=== PATIENT | male | born 1950 | race Caucasian/White ===

== ENCOUNTER 2017-03-04 15:44 | Emergency (ER) | payer MEDICAID, MEDICARE ==
--- NOTE | 2017-03-04 16:14 | ER Document Report ---
ED Medical Screen (RME) - General Chief Complaint: Psych Problem Stated Complaint: SUICIDAL IDEATION Time Seen by Provider: 03/04/17 16:10 Notes: Patient arrives by ambulance. Patient states he was picked up in a field [place] to his [place]. Patient states he is not sure who called the ambulance. He states that he has been feeling very depressed and has been thinking of killing himself. He states he does have a gun at his trailer. Patient denies any problems with hallucinations. Patient states he has never seen a psychiatrist before. Patient states he does live alone. Patient denies any thoughts of wanting to hurt anyone else. Patient states he has never tried to commit suicide before. He says he is depressed because his mother and 2 brothers recently . - Related Data Allergies/Adverse Reactions: Sulfa (Sulfonamide Antibiotics) Allergy (Verified 03/04/17 15:59) Past Medical History Renal/ Medical History: Denies: Hx Peritoneal Dialysis
[2017-03-04 16:49] LABS: ABSOLUTE BASOPHILS # (AUTO) 0.1 10^3/uL (0.0-0.2); ABSOLUTE EOSINOPHILS # (AUTO) 0.4 10^3/uL (0.0-0.6); ABSOLUTE MONOCYTES (AUTO) 0.6 10^3/uL (0.1-1.4); ABSOLUTE NEUT (AUTO) 6.8 10^3/uL (1.7-8.2); BASOPHILS % (AUTO) 1.2 % (0-2); EOSINOPHILS % (AUTO) 3.8 % (0-6); HEMATOCRIT 42.1 % (37.9-51.0); HEMOGLOBIN 14.1 g/dL (13.5-17.0); HGB HCT DIFFERENCE 0.2; LYMPHOCYTES % (AUTO) 20.4 % (13-45); MEAN CORPUSCULAR HEMOGLOBIN 30.7 pg (27.0-33.4); MEAN CORPUSCULAR HGB CONC 33.5 g/dL (32.0-36.0); MEAN CORPUSCULAR VOLUME 92 fl (80-97); MONOCYTES % (AUTO) 5.9 % (3-13); RED CELL DISTRIBUTION WIDTH 15.7 % (11.5-14.0); SEGMENTED NEUTROPHILS % (AUTO) 68.7 % (42-78); WHITE BLOOD COUNT 9.9 10^3/uL (4.0-10.5)
[2017-03-04 17:01] LABS: APPEARANCE,URINE CLEAR; BILIRUBIN,URINE NEGATIVE (NEGATIVE); GLUCOSE, URINE NEGATIVE (NEGATIVE); KETONES,URINE NEGATIVE (NEGATIVE); LEUKOCYTE ESTERASE,URINE NEGATIVE (NEGATIVE); NITRITE,URINE NEGATIVE (NEGATIVE); PROTEIN,URINE NEGATIVE (NEGATIVE); URINE SPECIFIC GRAVITY 1.012; UROBILINOGEN,URINE NEGATIVE mg/dL (<2.0)
[2017-03-04 17:06] LABS: ALANINE AMINOTRANSFERASE 26 U/L (21-72); ALBUMIN 4.2 g/dL (3.5-5.0); ALCOHOL < 10 mg/dL (NONE DETECTED); ALKALINE PHOSPHATASE 96 U/L (38-126); ANION GAP 10 (5-19); ASPARTATE AMINO TRANSFERASE 26 U/L (17-59); BILIRUBIN,DIRECT 0.4 mg/dL (0.0-0.4); BILIRUBIN,TOTAL 0.6 mg/dL (0.2-1.3); BLOOD UREA NITROGEN 15 mg/dL (7-20); CALCIUM 9.1 mg/dL (8.4-10.2); CARBON DIOXIDE 28 mmol/L (22-30); CHLORIDE 98 mmol/L (98-107); CREATININE RESULT 0.82 mg/dL (0.52-1.25); GLUCOSE 94 mg/dL (75-110); POTASSIUM 4.1 mmol/L (3.6-5.0); SODIUM 136.1 mmol/L (137-145); TOTAL PROTEIN 6.8 g/dL (6.3-8.2)
[2017-03-04 17:19] LABS: URINE BARBITURATES SCREEN NEGATIVE; URINE METHADONE SCREEN NEGATIVE; URINE OPIATES LOW NEGATIVE; URINE PHENCYCLIDINE SCREEN NEGATIVE
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
[2017-03-04] MEDS ORDERED: DIPHENHYDRAMINE HCL 50 MG CAPSULE PO ONE (21:22)
[2017-03-04] MEDS: BUSPIRONE HCL 10 MG TABLET PO SCH (21:27)
[2017-03-04] MEDS ORDERED: IBUPROFEN 600 MG TABLET PO ONE (22:03)
--- NOTE | 2017-03-04 23:19 | EKG REPORT ---
SEVERITY:- NORMAL ECG - SINUS RHYTHM : Confirmed by: Denisa Sage 04-Mar-2017 23:18:24
--- NOTE | 2017-03-05 00:41 | ER Document Report ---
ED Psych Disorder / Suicide - General Chief Complaint: Psych Problem Stated Complaint: SUICIDAL IDEATION Time Seen by Provider: 03/04/17 16:10 Mode of Arrival: Ambulatory Information source: Patient - HPI Patient complains to provider of: Suicidal ideation Onset was: Cannot confirm Quality of pain: No pain Suicide Risk Factors: Depressed, Lack of social support, Male Associated symptoms: Depressed, Flat affect Notes: Patient is a 66-year-old male presenting to the emergency room today complaining of depression, stating "I have a bad case of the blues", with thoughts of suicide, he denies any history of this previously, however brother confirm that he has a history of mental illness previous hospitalizations, he is not currently on any medications, he does report that he has lack of social support, and is depressed over the of many family members specifically his mother who in 2015 - Related Data Allergies/Adverse Reactions: Sulfa (Sulfonamide Antibiotics) Allergy (Verified 03/04/17 15:59) Past Medical History - General Information source: Patient - Social History Smoking Status: Current Every Day Smoker Frequency of alcohol use: Social Drug Abuse: None Family History: Reviewed & Not Pertinent Patient has suicidal ideation: Yes Renal/ Medical History: Denies: Hx Peritoneal Dialysis Review of Systems - Review of Systems Constitutional: No symptoms reported EENT: No symptoms reported Cardiovascular: No symptoms reported Respiratory: No symptoms reported Gastrointestinal: No symptoms reported Genitourinary: No symptoms reported Male Genitourinary: No symptoms reported Musculoskeletal: No symptoms reported Skin: No symptoms reported Hematologic/Lymphatic: No symptoms reported Neurological/Psychological: See HPI -: Yes All other systems reviewed and negative Physical Exam - Vital signs Vitals: Temp Pulse Resp BP Pulse Ox 98.6 F 62 16 140/67 H 99 03/04/17 16:00 03/04/17 16:00 03/04/17 16:00 03/04/17 16:00 03/04/17 16:00 Interpretation: Normal - General General appearance: Appears well, Alert - HEENT Head: Normocephalic, Atraumatic Eyes: Normal Pupils: PERRL - Respiratory Respiratory status: No respiratory distress Chest status: Nontender Breath sounds: Normal Chest palpation: Normal - Cardiovascular Rhythm: Regular Heart sounds: Normal auscultation Murmur: No - Abdominal Inspection: Normal Distension: No distension Bowel sounds: Normal Tenderness: Nontender Organomegaly: No organomegaly - Back Back: Normal, Nontender - Extremities General upper extremity: Normal inspection, Nontender, Normal color, Normal ROM , Normal temperature General lower extremity: Normal inspection, Nontender, Normal color, Normal ROM , Normal temperature, Normal weight bearing. No: Robin's sign - Neurological Neuro grossly intact: Yes Cognition: Normal Orientation: AAOx4 Luis Coma Scale Eye Opening: Spontaneous Luis Coma Scale Verbal: Oriented [place] Coma Scale Motor: Obeys Commands Luis Coma Scale Total: 15 Speech: Normal Motor strength normal: LUE, RUE, LLE, RLE Sensory: Normal - Psychological Associated symptoms: Depressed, Flat affect - Skin Skin Temperature: Warm Skin Moisture: Dry Skin Color: Normal Course - Re-evaluation Re-evalutation: 03/05/17 00:40 Patient was seen and evaluated by mental health who recommends to place him on IVC for further evaluation and treatment, medication recommendations were made and ordered, patient is otherwise stable for transfer discharge - Vital Signs Vital signs: Temp Pulse Resp BP Pulse Ox 98.5 F 65 16 138/69 H 99 03/04/17 19:14 03/04/17 19:14 03/04/17 19:14 03/04/17 19:14 03/04/17 19:14 - Laboratory Result Diagrams: 03/04/17 16:35 03/04/17 16:35 Laboratory results interpreted by me: 03/04/17 03/04/17 03/04/17 16:35 16:35 16:35 RDW 15.7 H Sodium 136.1 L Urine Blood SMALL H Salicylates < 1.0 L Acetaminophen < 10 L - EKG Interpretation by Me EKG shows normal: Sinus rhythm Rate: Bradycardia Discharge - Discharge Clinical Impression: Suicidal ideations Condition: Stable Disposition: PSYCH HOSP/UNIT
[2017-03-05] MEDS: DIVALPROEX SODIUM 500 MG TAB.SR.24H PO SCH ×2 (08:36→18:33)
[2017-03-05] MEDS: BUSPIRONE HCL 10 MG TABLET PO SCH ×2 (08:36→22:06)
--- NOTE | 2017-03-05 09:47 | ER Document Report ---
Doctor's Note Notes: 03/05/17 09:46 Patient is resting comfortably in his bed reading a magazine. He has no significant complaints this morning. He is cheerful, pleasant, and conversant. He is awaiting disposition.
[2017-03-06] MEDS: BUSPIRONE HCL 10 MG TABLET PO SCH ×2 (08:10→20:28)
--- NOTE | 2017-03-06 09:27 | ER Document Report ---
Doctor's Note Notes: 03/06/17 09:26 pt awaked, pleasant this am. complains of wax build up in left ear. educated about otc cerumenx. also will get depakote level this am.
[2017-03-06] MEDS: DIVALPROEX SODIUM 500 MG TAB.SR.24H PO SCH ×2 (10:31→17:46)
[2017-03-07] MEDS: BUSPIRONE HCL 10 MG TABLET PO SCH (08:01)
[2017-03-07 09:10] VITALS: BP 110/78
--- NOTE | 2017-03-07 09:38 | ER Document Report ---
Doctor's Note Notes: 03/07/17 09:37 The patient is resting comfortably and without complaints. I discussed the case with the psychiatry team and the patient is going to be discharged and DSS will be picking patient up this morning. The patient does state he feels better. We will send him home with prescriptions for BuSpar and Depakote. I have advised the patient to return to the emergency room for any worsening thoughts of wanting to hurt himself. 03/07/17 09:39
[2017-03-07] MEDS: DIVALPROEX SODIUM 500 MG TAB.SR.24H PO SCH (09:51)
== END 2017-03-07 09:53 | disposition home or self-care (01) ==
LOC: ER 15:44
DX: F32.9 Major depressive disorder, single episode, unspecified (principal); R45.851 Suicidal ideations; H61.22 Impacted cerumen, left ear; R00.1 Bradycardia, unspecified; F17.200 Nicotine dependence, unspecified, uncomplicated; Z88.2 Allergy status to sulfonamides; Z87.820 Personal history of traumatic brain injury
CPT/HCPCS: 93005; 99285; 36415; 80307 ×4; 85025; 80053; 81001; 80164; 93010; A9270 ×7